=== PATIENT | female | born 1985 | race Asian ===

== ENCOUNTER 2024-05-10 15:46 | Emergency (ER) | payer BC ==
[~2024-05-10] VITALS: Ht 162.6 cm; Wt 63.5 kg
[2024-05-10] MEDS ORDERED: ACETAMINOPHEN 325 MG TABLET ONE (17:53)
[2024-05-10] MEDS: ACETAMINOPHEN 325 MG TABLET PO ONE (17:58)
[2024-05-10 18:14] LABS: BASOPHILS % (AUTO) 0.1 % (0.0-2.0); EOSINOPHILS % (AUTO) 0.1 % (0.0-6.0); HEMATOCRIT 38 % (33-45); HEMOGLOBIN 12.7 g/dL (11.5-14.8); LYMPHOCYTES # (AUTO) 0.5 K/uL (0.8-4.8); LYMPHOCYTES % (AUTO) 6.5 % (20.0-44.0); MEAN CORPUSCULAR HEMOGLOBIN 28 PG (26.0-33.0); MEAN CORPUSCULAR HGB CONC 34 g/dl (31.0-36.0); MEAN CORPUSCULAR VOLUME 84 fL (82-100); MONOCYTES # (AUTO) 0.4 K/uL (0.1-1.30); MONOCYTES % (AUTO) 5.5 % (2.0-12.0); NEUTROPHILS # (AUTO) 6.3 K/uL (1.8-8.9); NEUTROPHILS % (AUTO) 87.8 % (43.0-81.0); PLATELET COUNT (AUTO) 180 K/uL (150-450); RED BLOOD CELL COUNT(AUTO) 4.49 MIL/uL (4.0-5.2); RED CELL DISTRIBUTION WIDTH 14.4 % (11.5-15.0); WHITE BLOOD COUNT (AUTO) 7.2 K/uL (4.3-11.0)
[2024-05-10 18:41] LABS: CALCIUM, SERUM 8.9 mg/dL (8.5-10.1); CARBON DIOXIDE 22 mmol/L (21-32); CHLORIDE 107 mmol/L (98-107); CREATININE 0.7 mg/dL (0.6-1.3); GLUCOSE 92 mg/dL (74-106); POTASSIUM 3.5 mmol/L (3.5-5.1); SODIUM SERUM 140 mmol/L (136-145); UREA NITROGEN, BLOOD 11 mg/dL (7-18)
[2024-05-10 18:47] LABS: ALANINE AMINOTRANSFERASE 15 U/L (12-78); ALBUMIN 4.1 g/dL (3.4-5.0); ALKALINE PHOSPHATASE 51 U/L (46-116); ASPARTATE AMINOTRANSFERASE 11 U/L (15-37); BILIRUBIN,DIRECT 0.2 mg/dL (0.0-0.2); BILIRUBIN,TOTAL 0.6 mg/dL (0.2-1.0); TOTAL PROTEIN, SERUM 7.9 g/dL (6.4-8.2)
[2024-05-10] MEDS ORDERED: ASPIRIN 81 MG TAB.CHEW ONE (20:53)
[2024-05-10] MEDS: ASPIRIN 81 MG TAB.CHEW PO ONE (20:57)
[2024-05-10 23:12] VITALS: BP 127/78; TEMP 98; O2SAT 100
== END 2024-05-10 23:13 | disposition left against medical advice (07) ==
LOC: ER 15:49
DX: S09.8XXA Other specified injuries of head, initial encounter (principal); R07.9 Chest pain, unspecified; R51.9 Headache, unspecified; R53.1 Weakness; R79.89 Other specified abnormal findings of blood chemistry; M54.2 Cervicalgia; K76.0 Fatty (change of) liver, not elsewhere classified; R10.2 Pelvic and perineal pain; Y04.0XXA Assault by unarmed brawl or fight, initial encounter; Y93.89 Activity, other specified; Y92.89 Other specified places as the place of occurrence of the external cause; Y99.8 Other external cause status
CPT/HCPCS: 36415; 70450-TC; 71250-TC; 72125-TC; 80048-TC; 80076-TC; 84484-TC; 84702-TC; 85025-TC